=== PATIENT | male | born 1945 | race Native Hawaiian/Other Pacific Islander ===

== ENCOUNTER 2018-11-29 13:00 | Outpatient (CLI) | payer OTHER, MEDICARE | END 2018-11-29 23:20 | disposition home or self-care (01) | LOC: LABW 13:00 | DX: D64.89 Other specified anemias (principal); D72.818 Other decreased white blood cell count; R76.0 Raised antibody titer; Z79.899 Other long term (current) drug therapy | CPT/HCPCS: 82272; 87015; 87045; 87899 ==

== ENCOUNTER 2018-12-25 10:26 | Outpatient (CLI) | payer OTHER, MEDICARE | END 2018-12-25 11:02 | disposition short-term general hospital (02) | LOC: AMB 10:26 | DX: R55 Syncope and collapse (principal); R53.1 Weakness; M25.551 Pain in right hip | CPT/HCPCS: A0425; A0427 ==

== ENCOUNTER 2019-02-20 17:29 | Outpatient (CLI) | payer OTHER, MEDICARE | END 2019-02-20 18:12 | disposition short-term general hospital (02) | LOC: AMB 17:29 | DX: R50.9 Fever, unspecified (principal); R11.2 Nausea with vomiting, unspecified | CPT/HCPCS: A0425; A0427 ==

== ENCOUNTER 2019-03-13 12:54 | Outpatient (CLI) | payer OTHER, MEDICARE ==
[2019-03-13 13:31] LABS: PLATELET COUNT 114 K/uL (142-355)
[2019-03-13 14:10] LABS: POTASSIUM 3.5 mmol/L (3.6-5.2)
== END 2019-03-13 23:24 | disposition home or self-care (01) ==
LOC: LABW 12:54
PROVIDERS: Internal Medicine Medical Oncology
DX: D46.Z Other myelodysplastic syndromes (principal)
CPT/HCPCS: 80053; 83615; 85027; 85044; 86157; 86880

== ENCOUNTER 2019-07-12 19:58 | Outpatient (CLI) | payer OTHER, MEDICARE | END 2019-07-12 20:14 | disposition short-term general hospital (02) | LOC: AMB 19:58 | DX: R07.89 Other chest pain (principal); W19.XXXA Unspecified fall, initial encounter | CPT/HCPCS: A0425; A0427 ==